=== PATIENT | female | born 1990 ===

== ENCOUNTER 2021-02-13 10:45 | Inpatient (IN) ==
[2021-02-13] MEDS ORDERED: FAMOTIDINE 20 MG/2 ML VIAL IV ONE (11:54)
[2021-02-13] MEDS ORDERED: CITRIC ACID/SODIUM CITRATE 30 ML UDCUP PO ONE (11:54)
[2021-02-13] MEDS ORDERED: ceFAZolin 3,000 MG in SYRINGE 1 EACH IV ONE (11:54)
[2021-02-13] MEDS ORDERED: LACTATED RINGERS 1,000 ML IV SCH ×2 (12:00→15:30)
[2021-02-13] MEDS ORDERED: OXYTOCIN 10 UNIT/ML VIAL IM ONE (12:16)
[2021-02-13] MEDS ORDERED: OXYTOCIN/LR 30 UNIT/1,000 ML BAG IV ONE (12:16)
[2021-02-13] MEDS ORDERED: OXYTOCIN/LR 20 UNIT/1,000 ML BAG IV ONE ×2 (12:16→15:26)
[2021-02-13 12:33] LABS: Basophils % 0.3 % (0.0-0.8); Eosinophils % 0.2 % (0.00-10.9); Hematocrit 35.6 VOL% (35.7-47.0); Hemoglobin 11.6 GM/DL (12.0-16.0); Immature Granulocytes Absolute 0.19 #; Lymphocytes % 10.5 % (21.3-54.2); Mean Corpuscular HGB Conc 32.6 GM/DL (32-36); Mean Corpuscular Volume 84.6 FL (87-102); Monocytes % 3.7 % (1.7-12.7); Neutrophils % 83.3 % (38.7-73.9); Platelet Count 211 T/CUMM (130-400); Red Blood Count 4.21 MC/CUMM (3.8-5.5); Red Cell Distribution Width 20.1 % (9.3-17.3); White Blood Count 9.7 T/CUMM (4-12)
[2021-02-13] MEDS ORDERED: fentaNYL 100 MCG/2 ML VIAL ONE (12:42)
[2021-02-13] MEDS ORDERED: PHENYLEPHRINE 1 MG/10 ML SYRINGE IV ONE (12:42)
[2021-02-13] MEDS ORDERED: ONDANSETRON 4 MG/2 ML VIAL ONE (12:42)
[2021-02-13] MEDS ORDERED: MORPHINE 10 MG/10 ML VIAL ONE (12:42)
[2021-02-13] MEDS ORDERED: BUPIVACAINE SPINAL 0.75% 2 ML AMP SPINAL ONE (12:45)
[2021-02-13 12:49] LABS: Albumin 2.5 G/DL (3.4-5.0); Bilirubin,Total 0.4 MG/DL (0.2-1.0); Calcium 8.6 MG/DL (8.5-10.1); Osmolality,Calculated 277.4 MOS/KG (273-304); Potassium 3.7 MMOL/L (3.5-5.1); Total Protein 7.7 G/DL (6.4-8.2)
[2021-02-13] MEDS ORDERED: METHYLERGONOVINE 0.2 MG/1 ML AMP ONE (13:26)
[2021-02-13] MEDS ORDERED: CARBOPROST TROMETHAMINE 250 MCG/ML AMP IM ONE (13:26)
[2021-02-13] MEDS ORDERED: miSOPROStoL 200 MCG TABLET ONE (13:26)
[2021-02-13] MEDS ORDERED: KETOROLAC 30 MG/1 ML VIAL ONE ×2 (14:31→14:32)
[2021-02-13 14:42] LABS: Cord Venous Blood HCO3 21.5 MMOL/L; Cord Venous Blood PCO2 43.8 MMHG; Cord Venous Blood PO2 31.3
[2021-02-13 14:48] LABS: Bilirubin,Urine Negative (Negative); Blood, Urine Negative (Negative); Glucose,Urine (UA) Negative (Negative); Ketones,Urine 20 mg/dL (Negative); Mucus,Urine Occasional /LPF (Occasional); Nitrite,Urine Negative (Negative); Protein,Urine 30 MG/DL; RBC,Urine 1 /HPF (0-4); Squamous Epithelial Cell,Urine Occasional /HPF (0-10); Urine Appearance CLEAR (Clear); Urine Color Yellow (Yellow); Urine Specific Gravity 1.026 (1.001-1.035); Urine Urobilinogen < 2.0 EU/DL (0.2-1.0); WBC,Urine <1 /HPF (0-6)
[2021-02-13] MEDS ORDERED: ONDANSETRON 4 MG/2 ML VIAL IV PRN ×2 (15:14→15:26)
[2021-02-13] MEDS ORDERED: HYDROmorphone 2 MG/1 ML VIAL IV PRN (15:14)
[2021-02-13] MEDS ORDERED: hydrOXYzine HCL 25 MG/1 ML VIAL IM PRN (15:14)
[2021-02-13] MEDS ORDERED: diphenhydrAMINE 50 MG/1 ML VIAL IV PRN (15:14)
[2021-02-13] MEDS ORDERED: ACETAMINOPHEN 325 MG TABLET PO PRN (15:26)
[2021-02-13] MEDS ORDERED: IBUPROFEN 800 MG TABLET PO PRN (15:26)
[2021-02-13] MEDS ORDERED: RHO(D) IMMUNE GLOBULIN 300 MCG SYRINGE IM ONE (15:26)
[2021-02-13] MEDS: KETOROLAC 30 MG/1 ML VIAL IV SCH (21:20)
[2021-02-13] MEDS: ceFAZolin 1,000 MG in SYRINGE 1 EACH IV SCH (21:50)
[2021-02-13] MEDS: DOCUSATE SODIUM 100 MG CAPSULE PO SCH (22:03)
[2021-02-13 22:27] LABS: Hematocrit 27.6 VOL% (35.7-47.0); Hemoglobin 8.5 GM/DL (12.0-16.0)
[2021-02-14] MEDS: KETOROLAC 30 MG/1 ML VIAL IV SCH ×2 (04:30→09:28)
[2021-02-14] MEDS: ceFAZolin 1,000 MG in SYRINGE 1 EACH IV SCH (06:29)
[2021-02-14 06:54] LABS: Basophils % 0.3 % (0.0-0.8); Eosinophils % 0.6 % (0.00-10.9); Hematocrit 23.9 VOL% (35.7-47.0); Hemoglobin 7.6 GM/DL (12.0-16.0); Immature Granulocytes % 1.3 %; Immature Granulocytes Absolute 0.08 #; Lymphocytes # 1.1 10*3/uL (1.4-4.0); Lymphocytes % 16.5 % (21.3-54.2); Mean Corpuscular HGB Conc 31.8 GM/DL (32-36); Mean Corpuscular Volume 87.2 FL (87-102); Mean Platelet Volume 9.9 FL (9.6-12.0); Monocytes % 5.5 % (1.7-12.7); Neutrophils % 75.8 % (38.7-73.9); Red Cell Distribution Width 20.3 % (9.3-17.3)
[2021-02-14 06:58] LABS: Red Blood Count 2.74 MC/CUMM (3.8-5.5); White Blood Count 6.4 T/CUMM (4-12)
[2021-02-14 06:59] LABS: Platelet Count 160 T/CUMM (130-400)
[2021-02-14] MEDS: SIMETHICONE CHEW 80 MG TABLET PO PRN (08:28)
[2021-02-14] MEDS: MULTIVITAMIN (PRENATAL) TABLET PO SCH (08:28)
[2021-02-14] MEDS: METOCLOPRAMIDE 10 MG TABLET PO SCH ×2 (08:28→20:40)
[2021-02-14] MEDS: MAGNESIUM HYDROXIDE SUSP 30 ML UDCUP PO PRN ×2 (08:28→20:40)
[2021-02-14] MEDS: DOCUSATE SODIUM 100 MG CAPSULE PO SCH ×2 (08:28→20:40)
[2021-02-14] MEDS ORDERED: SODIUM CHLORIDE 0.9% 1,000 ML IV PRN (08:30)
[2021-02-15 06:19] LABS: Basophils % 0.2 % (0.0-0.8); Eosinophils # 0.1 10*3/uL (0.0-0.87); Eosinophils % 0.8 % (0.00-10.9); Hematocrit 31.2 VOL% (35.7-47.0); Hemoglobin 9.6 GM/DL (12.0-16.0); Immature Granulocytes % 1.8 %; Immature Granulocytes Absolute 0.15 #; Lymphocytes # 1.4 10*3/uL (1.4-4.0); Lymphocytes % 16.5 % (21.3-54.2); Mean Corpuscular HGB Conc 30.8 GM/DL (32-36); Mean Corpuscular Volume 89.7 FL (87-102); Mean Platelet Volume 9.8 FL (9.6-12.0); Monocytes % 5.4 % (1.7-12.7); Neutrophils % 75.3 % (38.7-73.9); Platelet Count 216 T/CUMM (130-400); Red Blood Count 3.48 MC/CUMM (3.8-5.5); Red Cell Distribution Width 19.9 % (9.3-17.3); White Blood Count 8.3 T/CUMM (4-12)
[2021-02-15] MEDS: SIMETHICONE CHEW 80 MG TABLET PO PRN (08:50)
[2021-02-15] MEDS: MULTIVITAMIN (PRENATAL) TABLET PO SCH (08:50)
[2021-02-15] MEDS: DOCUSATE SODIUM 100 MG CAPSULE PO SCH (08:50)
[2021-02-15] MEDS: METOCLOPRAMIDE 10 MG TABLET PO SCH (08:51)
[2021-02-15] MEDS ORDERED: FERROUS SULFATE 325 MG TABLET PO SCH (09:00)
[2021-02-15 11:35] VITALS: BP 133/88
== END 2021-02-15 15:40 | disposition home or self-care (01) | DRG 788 ==
LOC: N.LD 11:02 → N.OB 18:00
PROVIDERS: ADMIT Obstetrics & Gynecology; ATTEND Obstetrics & Gynecology
PROC: LDCSECT (ICD-10-PCS; 2021-02-13 11:00)